=== PATIENT | male | born 1970 | race Caucasian/White ===

== ENCOUNTER 2024-08-03 08:36 | Emergency (ER) | payer BC, MEDICARE ==
[2024-08-03] MEDS: HYDROCODONE/APAP 7.5MG-325MG 1 EA TAB PO ONE (09:06)
[2024-08-03] MEDS: KETOROLAC TROMETHAMINE 30 MG/ML VIAL IM STA (09:06)
[2024-08-03] MEDS ORDERED: HYDROCODON-ACE1 EA11 PO (09:13)
[2024-08-03 09:18] VITALS: PULSE 69; RESP 16; TEMP 97.9; O2SAT 98
== END 2024-08-03 09:24 | disposition home or self-care (01) ==
LOC: ER 08:42
DX: M54.50 Low back pain, unspecified (principal); M62.830 Muscle spasm of back; X50.0XXA Overexertion from strenuous movement or load, initial encounter
CPT/HCPCS: 99283; J1885